=== PATIENT | male | born 1950 | race Caucasian/White ===

== ENCOUNTER 2021-12-06 09:28 | Outpatient (CLI) | payer OTHER, SELFPAY | END 2021-12-06 09:29 | disposition home or self-care (01) | LOC: ANHAUDIO 09:30 | PROVIDERS: PCP Family Medicine; Visit Provider Family Medicine | DX: H90.3 Sensorineural hearing loss, bilateral (principal) | CPT/HCPCS: 92557; 92567 ==

== ENCOUNTER 2023-11-20 15:23 | Observation (INO) | payer OTHER, SELFPAY ==
[2023-11-20] VITALS (12 sets, daily range): BP systolic 102–120; BP diastolic 53–89; PULSE 59–71; RESP 12–20; TEMP 36.2–36.4; O2SAT 95–100; BMI 37.7
--- NOTE | ~2023-11-20 | MR_ITS ---
EXAMINATION: MR brain/brain stem wo/w con DATE: 11/21/2023 12:46 INDICATION: Transient ischemic attack. TECHNIQUE: Magnetic resonance imaging (MRI) of the brain and brainstem was performed without and with 20 mL MultiHance intravenous contrast. COMPARISON: Head CT 11/20/2023 FINDINGS: There are scattered areas of nonspecific increased T2-weighted signal intensity in the cere bral white matter. There is no intracranial hemorrhage, acute infarction, or abnormal intracranial ma ss lesion. The ventricles are normal in size. There are likely changes of ocular lens replacement cassius geries. The paranasal sinuses are clear. The mastoid air cells are normal. IMPRESSION: 1. Mild nonspecific cerebral white matter disease, which likely represents chronic small vessel ische ciara disease. Reviewed, dictated and finalized at location A. IMPRESSION: 1. 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
--- NOTE | ~2023-11-20 | US_ITS ---
EXAMINATION: US venous doppler [facility] DATE: 11/21/2023 10:05 INDICATION: Lower limb edema. TECHNIQUE: Grayscale ultrasound images without and with compression and Doppler ultrasound images of the bilateral lower extremity veins were obtained. COMPARISON: None. FINDINGS: The visualized portions of right common femoral vein, profunda (deep) femoral vein, femoral vein, pop liteal vein, peroneal veins, posterior tibial veins, and greater saphenous vein outflow are patent. The visualized portions of left common femoral vein, profunda femoral vein, femoral vein, popliteal v ein, peroneal veins, posterior tibial veins, and greater saphenous vein outflow are patent. IMPRESSION: 1. No deep venous thrombosis. Reviewed, dictated and finalized at location A.
--- NOTE | ~2023-11-20 | US_ITS ---
EXAMINATION: US renal BI DATE: 11/21/2023 14:38 INDICATION: Elevated creatinine. TECHNIQUE: Multiple ultrasound grayscale images of the kidneys were obtained. COMPARISON: None. FINDINGS: The right kidney measures 10.7 x 6.2 x 6.4 cm. The left kidney measures 12.3 x 5.1 x 4.7 cm. The kidn eys demonstrate normal parenchymal echogenicity. There is no hydronephrosis. The bladder is normal. IMPRESSION: 1. Normal kidneys. No hydronephrosis. Reviewed, dictated and finalized at location A.
--- NOTE | ~2023-11-20 | CT_ITS ---
EXAMINATION: CT brain wo con DATE: 11/20/2023 15:40 INDICATION: Cerebrovascular accident. TECHNIQUE: Computed tomography (CT) of the head was performed without intravenous contrast. The mA wa s adjusted according to patient size. Iterative reconstruction technique was employed. The dose-lengt h product was 681.00 mGy-cm. COMPARISON: None FINDINGS: There are scattered areas of low attenuation in the cerebral white matter. There is no int racranial hemorrhage, acute infarction, or abnormal intracranial mass lesion. The ventricles are norm al in size. There are likely changes of ocular lens replacement surgeries. There is mild mucosal thic kening in the paranasal sinuses. The mastoid air cells are normal. IMPRESSION: 1. Mild nonspecific cerebral white matter disease, which likely represents chronic small vessel ische ciara disease. 2. I discussed this case with Dr. Middleton. Reviewed, dictated and finalized at location A. IMPRESSION: 1. Mild nonspecific cerebral white matter disease, which likely represents iron caster gab small vessel ischemic disease. 2. I discussed this case with Dr. Middleton.
--- NOTE | ~2023-11-20 | XR_ITS ---
EXAMINATION: XR chest 1V portable DATE: 11/20/2023 15:57 INDICATION: Altered mental status. TECHNIQUE: A single frontal view of the chest was obtained on 2 radiographs. COMPARISON: None. FINDINGS: There is no pneumonia, pleural effusion, or pneumothorax. The heart size is normal. There a re changes of posterior fusion procedure in thoracic spine. IMPRESSION: 1. No acute cardiopulmonary disease. Reviewed, dictated and finalized at location A.
--- NOTE | 2023-11-20 15:27 | ECG_ITS ---
Test Date: 2023-11-20 15:50:50 Measurements Intervals [place] Rate: 61 P: 76 SD: 172 QRS: -3 QRSD: 101 T: 59 QT: 425 QTc: 429 Interpretive Statements SINUS RHYTHM NONSPECIFIC T-WAVE ABNORMALITY ABNORMAL ECG No previous ECG available for comparison Electronically Signed On 11-20-2023 16:04:52 CDT by Elmer Shepard M.D.
[2023-11-20 15:43] LABS: Glucose Point of Care 123 mg/dl (65-105)
[2023-11-20 15:45] LABS: Basophils Absolute Auto 0.1 K/mm3 (0.0-0.1); Basophils Percent Auto 0.4 % (0.2-1.2); Eosinophils Absolute Auto 0.2 K/mm3 (0-0.3); Eosinophils Percent Auto 1.5 % (0-4.4); Hematocrit 39.8 % (42.0-52.0); Hemoglobin 13.3 g/dL (14.0-18.0); Immature Granulocyte Absolute 0.03 K/mm3 (0.00-0.031); Immature Granulocyte Percent A 0.3 % (0-0.5); Lymphocytes Absolute Auto 3.76 K/mm3 (0.9-3.2); Lymphocytes Percent Auto 31.6 % (18.3-44.2); Mean Corpuscular HGB Conc 33.4 g/dl (32-36); Mean Corpuscular Hemoglobin 29.6 pg (26-34); Mean Corpuscular Volume 88.4 fl (80-100); Mean Platelet Volume 10.4 fl (7.4-10.4); Monocytes Absolute Auto 1.2 K/mm3 (0.1-0.6); Monocytes Percent Auto 10.3 % (2.6-8.5); Neutrophils Absolute Auto 6.7 K/mm3 (1.3-6.7); Neutrophils Percent Auto 55.9 % (45.5-73.1); Platelet Count Result 213 k/mm3 (150-375); Red Cell Distribution Width 13.2 % (11.5-14.5); White Blood Count 11.9 K/mm3 (4.5-10.0)
[2023-11-20 15:57] LABS: INR 1.1; Partial Thromboplastin Time 29.5 Seconds (22.3-36.8)
--- NOTE | 2023-11-20 15:57 | ED.NEUROSD ---
HPI - Neuro Symptoms/Deficit General Chief Complaint: Suspected CVA Stated Complaint: weakness Time Seen by Provider: 11/20/23 15:46 History of Present Illness HPI Narrative: 73-year-old male presents to the emergency department for evaluation for altered mental status that started approximately noon. Patient states that he has bowel surrounding the car when the patient became dizzy and weak. Patient had no falls or injuries. Patient's pulse was concerned so he brought to emergency department for evaluation. Patient did have significant difficulty getting out of the car. Patient denies any new numbness or weakness. Patient does have weakness of the left leg that he states is not new. Patient has a prior history of a DVT in that leg and states that he normally has weakness and decreased sensation in that leg and that is unchanged today. Patient does have history of urinary retention, chronic kidney disease. Patient has no prior history of urinary tract infection. Related Data Home Medications Medication Instructions Recorded Confirmed aspirin 81 mg tablet,delayed 81 mg PO DAILY 07/30/21 11/20/23 release (Adult Aspirin Regimen) multivit with wj-SL-vhegoaxc-omega 1 cap PO .QD 07/30/21 11/20/23 3,6,9 no.3 400 mcg-300 mcg capsule omeprazole 20 mg capsule,delayed 40 mg PO DAILY 11/02/21 11/20/23 release metolazone 5 mg tablet 5 mg PO PRN PRN swelling 10/16/23 11/20/23 Allergies Allergy/AdvReac Type Severity Reaction Status Date / Time gabapentin AdvReac Mild Headache Verified 11/20/23 16:01 Review of Systems Review of Systems: All systems reviewed & are unremarkable except as noted in HPI and below PMFSH Past Medical History Medical History (HFpEF) heart failure with preserved ejection fraction Ataxia Burning chest pain Cervical spine degeneration CKD (chronic kidney disease) stage 3, GFR 30-59 ml/min Constipation Diastolic dysfunction Hyperlipidemia Hypertension Insomnia Ischemic optic neuropathy Low back pain 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 Other Breast cancer Cerebrovascular accident Social History Social History Social History: Surrogate medical decision maker: Lasha Vu, spouse. Code status: Full code. 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 HEAD: normocephalic, atraumatic. EYES: PERRLA/EOMI, conjunctivae clear. NOSE: Normal no drainage EARS:TMS clear with good light reflex. THROAT: Pharynx
[2023-11-20 16:11] LABS: Troponin I 0.022 ng/mL (0.000-0.034)
[2023-11-20 16:14] LABS: Estimated CRCL calculation 30 ml/min; Estimated Glomerular Filt Rate 21
[2023-11-20 16:43] LABS: Appearance Urine Clear (Clear); Bacteria Urine None Seen /hpf; Bilirubin Urine Negative (Negative); Blood Urine Negative (Negative); Color Urine Yellow (Yellow); Glucose Urine UA Negative (Negative); Ketones Urine Negative (Negative); Leukocyte Esterase Ur Trace LEU/UL (Negative); Nitrate Urine Negative (Negative); Protein Urine Negative (Negative); RBC Urine 0-2 /hpf (0-2); Specific Grav Ur 1.016 (1.001-1.035); Squamous Epithelial Cell Urine Occasional /hpf (Few); WBC Urine 0-5 /hpf (0-3); pH Urine 6.5 (5.0-9.0)
[2023-11-20 16:44] LABS: Alanine Aminotransferase 23 U/L (6-50); Albumin Level 4.7 g/dL (3.5-5.1); Alkaline Phosphatase 62 U/L (38-126); Anion Gap 11 mmol/L (4-12); Aspartate Amino Transferase 35 U/L (17-59); Bilirubin,Total 1.1 mg/dL (0.2-1.3); Blood Urea Nitrogen 53 mg/dL (9-20); Calcium 9.6 mg/dL (8.4-10.2); Carbon Dioxide 34 mmol/L (22-30); Chloride 90 mmol/L (98-107); Estimated CRCL calculation 34 ml/min; Estimated Glomerular Filt Rate 24; Glucose 116 mg/dL (65-110); Potassium 2.9 mmol/L (3.4-5.0); Sodium 135 mmol/L (137-145)
[2023-11-20 16:51] LABS: Add Urine Microscopic? YES
[2023-11-20] MEDS: SODIUM CHLORIDE 0.9% IV 1,000 ML 999 ML IV CONT (16:59)
[2023-11-20 17:14] LABS: Influenza A QL RT-PCR Negative (Negative); Influenza B QL RT-PCR Negative (Negative); RSV RNA, RT-PCR Negative (Negative); SARS-CoV-2 RNA PCR Negative (Negative)
--- NOTE | 2023-11-20 18:30 | PC.NURSE ---
This patient, Jordan Carroll, was admitted to Medical Room 342-01. Patient/family oriented to hospital policies and general routines including ID bracelet, bed and alarms, visiting hours, pain management, procedures, bathroom and other care routines, personal items, smoking policy, room service/diet, and visiting hours. Information on how to activate the Rapid Response Team has been discussed. Patient/Family are encouraged to report perceived risks to care and to ask questions if they do not understand what they are told or what they should do.
--- NOTE | 2023-11-20 18:32 | PM.IMHP ---
H&P: HPI History of Present Illness Date/Time: 11/20/23 18:30 Chief Complaint: Weakness. Narrative: This is a very pleasant 73-year-old male with hypertension, hyperlipidemia, prediabetes, chronic kidney disease stage 3, diastolic dysfunction, and history of deep venous thrombosis following extensive spinal surgery who presented to the emergency department via private vehicle for evaluation of weakness. The patient provides the following history. He felt fine when he got up this morning and just before noon he took his afternoon medications and went with his spouse to his doctor's appointment. On the ride there he began to feel strange with lightheadedness, dizziness, nausea, and generalized weakness. His spouse when into his appointment in the patient's state and the car where ?I either fell asleep or passed out.? They than headed towards home so he could rest however he could not get out of the car due to weakness as he was afraid that he was going to fall. He reports that the left side seemed to be weaker when compared to the right, leg worse than arm. He had a similar episode approximately 1 week ago which he attributed to dehydration as he had been outside working in the yard. At that time his symptoms improved after some rest and hydration. With further questioning he reports that he has been eating and drinking as per usual and he reports that he drinks quite a bit of water each day. He does mention that he was started on metolazone a little less than a month ago for lower extremity edema and he has been taking that 3 times a day. He has also noticed that his urine output seems to be less than usual since starting that drug. He denies vertigo, vision changes, facial droop, difficulty speaking and swallowing, palpitations, sensations of irregular heart rhythm. He also denies nausea, vomiting, and diarrhea. In the ED: Blood pressure was 102/53 on arrival. Labs were significant for a WBC count of 11.9, hemoglobin 13.3, sodium 135, potassium 2.9, chloride 90, carbon dioxide 34, BUN 53, creatinine 2.60, glucose 116. He tested negative for influenza, RSV, and COVID. Head CT showed mild nonspecific cerebral white matter disease which likely represents chronic small-vessel ischemic disease. Chest x-ray showed no acute cardiopulmonary disease. EKG showed sinus rhythm with nonspecific T-wave abnormalities. He was given a L normal saline bolus and is being admitted in this setting for further treatment and evaluation. Review of Systems Review of Systems: 12 systems were reviewed and are negative except for as per HPI. 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 Other Breast cancer Cerebrovascular accident Social History Social History (Updated 11/20/23 @ 22:26 by Ashwini Sanchez PA-C) Social History: Surrogate medical decision maker: Lasha Horace, spouse. Code status: Full code. Smoking status: Former smoker (Quit 1999) Tobacco type: cigarettes Second hand tobac
[2023-11-20] MEDS: POTASSIUM CHLORIDE 20 MEQ ER TABLET 40 MEQ PO (20:42)
[2023-11-20] MEDS: SODIUM CHLORIDE 0.9% IV 1,000 ML 125 ML IV CONT (20:42)
[2023-11-20] MEDS: PREGABALIN (*CRX) 75 MG CAPSULE PO (23:13)
[2023-11-20] MEDS: traZODone HCL 50 MG TABLET 100 MG PO (23:13)
[2023-11-21] VITALS (12 sets, daily range): BP systolic 100–135; BP diastolic 50–76; PULSE 47–73; RESP 16–20; TEMP 36.1–36.3; O2SAT 96–100
[2023-11-21] MEDS: SODIUM CHLORIDE 0.9% IV 1,000 ML 125 ML IV CONT (04:57)
[2023-11-21 05:28] LABS: Hematocrit 32.8 % (42.0-52.0); Mean Corpuscular HGB Conc 33.5 g/dl (32-36); Mean Corpuscular Hemoglobin 29.9 pg (26-34); Mean Corpuscular Volume 89.1 fl (80-100); Mean Platelet Volume 10.5 fl (7.4-10.4); Platelet Count Result 169 k/mm3 (150-375); Red Blood Count 3.68 M/mm3 (4.6-6.20); Red Cell Distribution Width 13.3 % (11.5-14.5); White Blood Count 9.4 K/mm3 (4.5-10.0)
[2023-11-21 05:39] LABS: Anion Gap 7 mmol/L (4-12); Blood Urea Nitrogen 59 mg/dL (9-20); Calcium 8.9 mg/dL (8.4-10.2); Carbon Dioxide 34 mmol/L (22-30); Chloride 95 mmol/L (98-107); Estimated CRCL calculation 24 ml/min; Estimated Glomerular Filt Rate 17; Glucose 96 mg/dL (65-110); Magnesium 2.2 mg/dL (1.6-2.3); Potassium 3.1 mmol/L (3.4-5.0); Sodium 136 mmol/L (137-145)
[2023-11-21] MEDS: cilostazoL 50 MG TABLET PO ×4 (08:15→21:05)
[2023-11-21] MEDS: PREGABALIN (*CRX) 75 MG CAPSULE PO ×2 (08:15→21:00)
[2023-11-21] MEDS: POTASSIUM CHLORIDE 20 MEQ ER TABLET PO ×2 (08:16→17:52)
[2023-11-21] MEDS: ASPIRIN 81 MG ENTERIC TABLET PO (08:16)
[2023-11-21] MEDS: PANTOPRAZOLE 40 MG TABLET PO ×2 (08:16→21:01)
[2023-11-21] MEDS: ENOXAPARIN 40 MG/0.4 ML SYRINGE SUB-Q (08:16)
[2023-11-21] MEDS: ATORVASTATIN 10 MG TABLET PO (08:16)
--- NOTE | 2023-11-21 10:00 | PM.IMPN ---
Progress Note: A&P Assessment and Plan (1) Acute on chronic kidney failure: Code(s): N17.9 - Acute kidney failure, unspecified; N18.9 - Chronic kidney disease, unspecified Status: Acute Assessment and Plan: - holding lasix 40 mg bid, hctz 112.5mg bid and metolazole 5 mg 3 times a week - iv hydration with close monitoring - cr is worsening today- will consult nephrology (2) Electrolyte abnormality: Code(s): E87.8 - Other disorders of electrolyte and fluid balance, not elsewhere classified Status: Acute Assessment and Plan: trend labs- replace if needed (3) Weakness: Code(s): R53.1 - Weakness Status: Acute Assessment and Plan: -Brain MRI has been ordered to rule out CVA which seems less likely. More over his weakness is likely related to acute on chronic renal failure and multiple electrolyte abnormalities which are likely related to his diuretics. - monitor for now- doensot appear to be neurological in nature (4) Prediabetes: Code(s): R73.03 - Prediabetes Status: Acute Assessment and Plan: -monitor - will do diabetic diet if sugars are elevated (5) Hypertension: Qualifiers: Hypertension type: primary hypertension Qualified Code(s): I10 - Essential (primary) hypertension Code(s): I10 - Essential (primary) hypertension Status: Acute Assessment and Plan: soft bp in er-102/53 - holddng lisinopril for now and monitoring (6) (HFpEF) heart failure with preserved ejection fraction: Qualifiers: Heart failure chronicity: chronic Qualified Code(s): I50.32 - Chronic diastolic (congestive) heart failure Code(s): I50.30 - Unspecified diastolic (congestive) heart failure Status: Acute Assessment and Plan: - lisinopril/hctz, lasix - echo- 06/16/22- (other facility- [facility])- ef 60% - monitor for now- fluid status- hold diuretics for now Time Spent With Patient Time with patient: 25 - 35 minutes Subjective Date/time seen: 11/21/23 10:00 Interval history: note retrieved from h/p: ..very pleasant 73-year-old male with following extensive spinal surgery who presented to the emergency department via private vehicle for evaluation of weakness. The patient provides the following history. He felt fine when he got up this morning and just before noon he took his afternoon medications and went with his spouse to his doctor's appointment. On the ride there he began to feel strange with lightheadedness, dizziness, nausea, and generalized weakness. His spouse when into his appointment in the patient's state and the car where ?I either fell asleep or passed out.? They than headed towards home so he could rest however he could not get out of the car due to weakness as he was afraid that he was going to fall. He reports that the left side seemed to be weaker when compared to the right, leg worse than arm. He had a similar episode approximately 1 week ago which he attributed to dehydration as he had been outside working in the yard. At that time his symptoms improved after some rest and hydration. With further questioning he reports that he has been eating and drinking as per usual and he reports that he drinks quite a bit of water each day. He does mention that he was started on metolazone a little less than a month ago for lower extremity edema and he has been taking that 3 times a day. He has also noticed that his urine output seems to be less than usual since starting that drug. He denies vertigo, vision changes, facial droop, difficulty speaking and swallowing, palpitations, sensations of irregular heart rhythm. He also denies nausea, vomiting, and diarrhea. In the ED: Blood pressure was 102/53 on arrival. Labs were significant for a WBC count of 11.9, hemoglobin 13.3, sodium 135, potassium 2.9, chloride 90, carbon dioxide 34, BUN 53, creatinine 2.60, glucose 116. He tested negative for influenza, RSV,
[2023-11-21 10:05] LABS: Estimated CRCL calculation 30 ml/min; Estimated Glomerular Filt Rate 21
[2023-11-21] MEDS: LORazepam (*CRX) 0.5 MG TABLET PO (11:42)
[2023-11-21] MEDS: polyethylene glycoL 3350 17 GM POWD.PACK PO (11:45)
--- NOTE | 2023-11-21 12:49 | PM.CNNEP ---
Assessment and Plan Assessment and plan (1) CKD (chronic kidney disease) stage 3, GFR 30-59 ml/min: Qualifiers: Chronic kidney disease stage 3 subtype: stage 3a (GFR 45-59) Qualified Code(s): N18.31 - Chronic kidney disease, stage 3a Code(s): N18.30 - Chronic kidney disease, stage 3 unspecified Status: Acute Assessment and Plan: michael has chronic kidney disease stage 3. His baseline creatinine seems to run between 1.5 and 1.8. in September of this year was 1.7 and earlier in October this year it was 1.8. the patient does have hypertension, vascular disease, and obesity. Please could each contribute to chronic kidney disease. There are other causes such as inflammatory disease, infiltrative diseases such as paraproteins, vascular disease, obstruction. Will check tests for each of these. (2) Acute kidney injury: Code(s): N17.9 - Acute kidney failure, unspecified Status: Acute Assessment and Plan: The patient creatinine is higher now than usual. At 1st it was thought that he might be dehydrated so he was given some IV fluids. He received a total of about 2L of fluid since admission. Unfortunately his creatinine worsened. Dehydration certainly could be playing a role. Because it is hot outside he might not be drinking enough fluid. he was also on diuretics when he was admitted, both furosemide and hydrochlorothiazide as well as metolazone. his blood pressure is not much lower than usual. So on think this is playing a role rhabdomyolysis is always a possibility as is obstruction. Will check a CK as well as a renal ultrasound and also get urine electrolytes and a fractional excretion of urea (3) Hypertension: Qualifiers: Hypertension type: primary hypertension Qualified Code(s): I10 - Essential (primary) hypertension Code(s): I10 - Essential (primary) hypertension Status: Acute Assessment and Plan: blood pressure is only 107. Will hold blood pressure pills (4) Hyperlipidemia: Qualifiers: Hyperlipidemia type: mixed hyperlipidemia Qualified Code(s): E78.2 - Mixed hyperlipidemia Code(s): E78.5 - Hyperlipidemia, unspecified Status: Acute Assessment and Plan: he is on atorvastatin (5) Constipation: Code(s): K59.00 - Constipation, unspecified Status: Acute Assessment and Plan: consider a cathartic (6) (HFpEF) heart failure with preserved ejection fraction: Qualifiers: Heart failure chronicity: chronic Qualified Code(s): I50.32 - Chronic diastolic (congestive) heart failure Code(s): I50.30 - Unspecified diastolic (congestive) heart failure Status: Acute Assessment and Plan: the patient has diastolic dysfunction according to an echo in May of 2022 (7) Prediabetes: Code(s): R73.03 - Prediabetes Status: Acute History of Present Illness Reason for Consult Consult date: 11/21/23 Chief Complaint Chief complaint: Weakness/AMS History of Present Illness Narrative: Jordan is a very pleasant 73-year-old gentleman with multiple medical problems including prediabetes, hypertension, hyperlipidemia, chronic kidney disease with a baseline creatinine of around 2, diastolic dysfunction, DVT in the past, history of ataxia, swelling, peripheral arterial disease, and constipation. Patient says he was well until about a week ago when he stopped having bowel movements. He does have constipation on and off. But this was a particularly bad episode where he did not have bowel movement for about 6 days on the day of admission the patient became lightheaded and nauseated with generalized weakness. He thought it would just passed and so wait a little while. He was going with his for her doctor visit and made it through that appointment but then on the way home became worse. He could not get out of the car so they called 911 and brought him over to t
[2023-11-21 17:42] LABS: Creatinine Urine 31.5 mg/dL; Total Protein Urine Random 19 mg/dL; Urea Random Urine 312 MG/DL
[2023-11-21 17:50] LABS: Sodium Urine Random 31 meq/L
[2023-11-21 20:39] LABS: Creatine Kinase 120 U/L (55-170)
[2023-11-21 20:57] LABS: Erythrocyte Sedimentation Rate 22 mm/hr (0-20)
[2023-11-21] MEDS: SODIUM CHLORIDE 0.9% IV 1,000 ML 50 ML IV CONT (21:00)
[2023-11-21] MEDS: traZODone HCL 50 MG TABLET 100 MG PO (21:01)
[2023-11-21 21:30] LABS: Complement C3 121 mg/dL (88-165)
[2023-11-21 21:34] LABS: Parathyroid Intact 125.5 pg/mL (7.5-53.5)
[2023-11-22] VITALS (10 sets, daily range): BP systolic 109–138; BP diastolic 44–66; PULSE 50–65; RESP 16–20; TEMP 36.4–36.6; O2SAT 98–100
--- NOTE | 2023-11-22 | ECHO_ITS ---
Patient Info Name: Jordan Carroll Age: 73 years : 1950 Gender: Male Ht: 74 in Wt: 296 lbs BSA: 2.70 m2 HR: 51 bpm BP: 109 / 44 mmHg Technical Quality: Fair Exam Date: 11/22/2023 9:35 AM Exam Location: Echo Lab Patient Status: Inpatient Admit Date: 11/20/2023 Staff Ordering Physician: Jennifer Dawn APRN Mountain Bike Guide: Brenton Pena RDCS Attending Provider: Jennifer Dawn APRN Referring Physician: López SHIELDS; Exam Type: CA echo doppler color flow Study Info Indications - hypotension - bradycardia Complete two-dimensional, color flow and Doppler transthoracic echocardiogram is performed. Summary 1. Complete two-dimensional, color flow and Doppler transthoracic echocardiogram is performed. 2. Left ventricular chamber dimension is normal. 3. Left ventricular systolic function is normal, estimated at 60-65%. 4. There is mild concentric increased left ventricular wall thickness. 5. The left ventricular diastolic function is normal. 6. E/e' 7 is not elevated. 7. Left atrial chamber dimension is mildly enlarged. 8. No pulmonary hypertension, estimated pulmonary arterial systolic pressure is 20 mmHg. 9. The aortic root size at the sinus of Valsalva is borderline dilated at 4.0 cm. 10. Dilated inferior vena cava with >50% collapse upon inspiration consistent with normal right atrial pressure, 10 mmHg. Left Ventricle E/e' 7 is not elevated. Left ventricular chamber dimension is normal. Left ventricular systolic function is normal, estimated at 60-65%. There is mild concentric increased left ventricular wall thickness. The left ventricular diastolic function is normal. Right Ventricle Right ventricular systolic function is normal and with normal TAPSE 2.4 cm. Right ventricular chamber dimension is normal. Left Atria Left atrial chamber dimension is mildly enlarged. Right Atria Right atrial chamber dimension is normal. Aortic Valve The aortic valve is trileaflet. There is no aortic valve stenosis. There is no aortic valve regurgitation. Pulmonic Valve There is no pulmonic regurgitation. Mitral Valve There is no mitral valve stenosis. There is no mitral valve regurgitation. Tricuspid Valve There is no tricuspid valve regurgitation. No pulmonary hypertension, estimated pulmonary arterial systolic pressure is 20 mmHg. Pericardium/Pleural There is no pericardial effusion. Inferior Vena Cava Dilated inferior vena cava with >50% collapse upon inspiration consistent with normal right atrial pressure, 10 mmHg. Aorta The aortic root size at the sinus of Valsalva is borderline dilated at 4.0 cm. Left Ventricular Outflow Tract Name Value Normal LVOT 2D LVOT Diameter 2.1 cm LVOT Doppler LVOT Peak Gradient 5 mmHg LVOT Mean Gradient 3 mmHg LVOT VTI 25 cm LVOT VTI/AV VTI Ratio 0.8 LVOT Stroke Volume 90 ml LVOT CO 4.7 l/min LVOT CI 1.8 l/min/m2 Pulmonic Valve Name
[2023-11-22 05:38] LABS: Anion Gap 4 mmol/L (4-12); Blood Urea Nitrogen 43 mg/dL (9-20); Calcium 9.5 mg/dL (8.4-10.2); Carbon Dioxide 35 mmol/L (22-30); Chloride 98 mmol/L (98-107); Estimated CRCL calculation 46 ml/min; Estimated Glomerular Filt Rate 35; Glucose 97 mg/dL (65-110); Phosphorus 2.7 mg/dL (2.5-4.5); Potassium 3.7 mmol/L (3.4-5.0); Sodium 137 mmol/L (137-145)
[2023-11-22 08:29] LABS: Magnesium 2.4 mg/dL (1.6-2.3)
[2023-11-22] MEDS: ASPIRIN 81 MG ENTERIC TABLET PO (08:46)
[2023-11-22] MEDS: ATORVASTATIN 10 MG TABLET PO (08:46)
[2023-11-22] MEDS: POTASSIUM CHLORIDE 20 MEQ ER TABLET PO (08:47)
[2023-11-22] MEDS: PREGABALIN (*CRX) 75 MG CAPSULE PO (08:47)
[2023-11-22] MEDS: PANTOPRAZOLE 40 MG TABLET PO (08:47)
[2023-11-22] MEDS: ENOXAPARIN 40 MG/0.4 ML SYRINGE SUB-Q (08:47)
[2023-11-22] MEDS: cilostazoL 50 MG TABLET PO ×2 (08:47→13:51)
[2023-11-22] MEDS: polyethylene glycoL 3350 17 GM POWD.PACK PO (08:47)
--- NOTE | 2023-11-22 12:21 | PM.PNNEP ---
Progress Note: A&P Assessment and Plan (1) Acute kidney injury: Code(s): N17.9 - Acute kidney failure, unspecified Status: Acute Assessment and Plan: improvement noted today as noted on admission worsened yesterday despite IVFs suspect still due to volume depletion worsened by diuretics prior to admission and relative hypotension evaluation to date: prerenal urine electrolytes by FeUrea renal ultrasound okay CPK normal mild proteinuria follow trend of repeat labs and UOP (2) CKD (chronic kidney disease) stage 3, GFR 30-59 ml/min: Qualifiers: Chronic kidney disease stage 3 subtype: stage 3a (GFR 45-59) Qualified Code(s): N18.31 - Chronic kidney disease, stage 3a Code(s): N18.30 - Chronic kidney disease, stage 3 unspecified Status: Chronic Assessment and Plan: creatinine seems to run ~ 1.3 - 1.8mg/dl this causes him to fluctuate between CKD stage 3A and 3B presumably due to hypertension, vascular disease, and obesity follow-up on pending testing (3) Hypertension: Qualifiers: Hypertension type: primary hypertension Qualified Code(s): I10 - Essential (primary) hypertension Code(s): I10 - Essential (primary) hypertension Status: Acute Assessment and Plan: relative hypotension on admission BP doing better with holding parameters of BP medications follow trend of hemodynamics (4) Weakness: Code(s): R53.1 - Weakness Status: Acute Assessment and Plan: clinically better suspect related to volume depletion and relative hypotension along with MIGEL on CKD Will continue to follow. Subjective Date/time seen: 11/22/23 12:21 Interval history: Follow-up for acute kidney injury/acute renal failure on chronic kidney disease. Chart reviewed -- assuming care from Dr. Ugalde; renal function continues to improve with current interventions/therapy; no apparent distress noted at the time of my visit; feels reasonably well and in no apparent distress; no issues/events overnight or earlier this morning. Exam Narrative: General: elderly but WD/WN male in NAD Heart: normal S1 and S2; no rub Lungs: clear to auscultation Abdomen: soft, nontender, nondistended, positive bowel sounds Extremities: no cyanosis or clubbing; trace edema Skin: warm and dry Objective Data Vital Signs Vital Signs: Vital Signs Temp Pulse Resp BP Pulse Ox O2 Del Method 11/22/23 12:00 97.9 F 60 16 129/63 100 11/22/23 10:06 65 119/66 11/22/23 10:06 64 138/64 11/22/23 10:05 65 129/65 11/22/23 06:00 97.6 F 51 L 20 109/44 L 99 11/22/23 07:48 98 Room Air 11/22/23 04:00 53 L 11/22/23 00:00 50 L 11/21/23 20:00 Room Air 11/21/23 20:00 64 11/21/23 22:00 97.2 F L 56 L 20 100/76 100 11/21/23 22:00 97.2 F L 56 L 20 100/76 100 11/21/23 22:10 97.0 F L 64 20 135/75 99 11/21/23 22:05 97.1 F L 54 L 20 130/64 98 Intake/Output Intake/Output: Intake & Output 11/19/23 11/20/23 11/21/23 11/22/23 23:59 23:59 23:59 23:59 Intake Total 1000 3080 1320 Output Total 220 1000 Balance 780 2080 1320 Meds/Results Medications: Medications: Active Medications Generic Name Dose Route Start Last Admin Trade Name Freq PRN Reason Stop Dose Admin Acetaminophen 650 mg 11/20/23 22:27 Acetaminophen 325 Mg Tablet PO Q6H PRN Mild Pain (1-3) or Fever Aspirin 81 mg 11/21/23 09:00 11/21/23 08:16 Aspirin 81 Mg Enteric Tablet PO 81 mg DAILY RUPERTO Administration Atorvastatin Calcium 10 mg 11/21/23 09:00 11/21/23 08:16 Atorvastatin 10 Mg Tablet PO 10 mg DAILY RUPERTO Administration Cilostazol 50 mg 11/21/23 08:00 11/21/23 08:15 Cilostazol 50 Mg Tablet PO 50 mg 0800,1200,1700,2100 RUPERTO Administration Enoxaparin Sodium 40 mg 11/21/23 09:00 11/21/23 08:16 Enoxaparin 40 Mg/0.4 Ml [facility]
--- NOTE | 2023-11-22 12:36 | PM.DS ---
DS: Admitting Diagnosis Discharge Date 11/22/2023 Admitting Diagnosis Acute on chronic renal failure/dehydration DS: Discharge Diagnosis Discharge Diagnosis (1) Acute on chronic kidney failure: Code(s): N17.9 - Acute kidney failure, unspecified; N18.9 - Chronic kidney disease, unspecified Status: Acute Assessment and Plan: - holding lasix 40 mg bid, hctz 112.5mg bid and metolazole 5 mg 3 times a week - iv hydration with close monitoring - cr is worsening today- will consult nephrology (2) Electrolyte abnormality: Code(s): E87.8 - Other disorders of electrolyte and fluid balance, not elsewhere classified Status: Acute Assessment and Plan: trend labs- replace if needed (3) Weakness: Code(s): R53.1 - Weakness Status: Acute Assessment and Plan: -Brain MRI has been ordered to rule out CVA which seems less likely. More over his weakness is likely related to acute on chronic renal failure and multiple electrolyte abnormalities which are likely related to his diuretics. - monitor for now- doensot appear to be neurological in nature (4) Prediabetes: Code(s): R73.03 - Prediabetes Status: Acute Assessment and Plan: -monitor - will do diabetic diet if sugars are elevated (5) Hypertension: Qualifiers: Hypertension type: primary hypertension Qualified Code(s): I10 - Essential (primary) hypertension Code(s): I10 - Essential (primary) hypertension Status: Acute Assessment and Plan: soft bp in er-102/53 - holddng lisinopril for now and monitoring (6) (HFpEF) heart failure with preserved ejection fraction: Qualifiers: Heart failure chronicity: chronic Qualified Code(s): I50.32 - Chronic diastolic (congestive) heart failure Code(s): I50.30 - Unspecified diastolic (congestive) heart failure Status: Acute Assessment and Plan: - lisinopril/hctz, lasix - echo- 06/16/22- (other facility- [facility])- ef 60% - monitor for now- fluid status- hold diuretics for now DS: Summary Hospital Course Hospital Course: Interval history: note retrieved from h/p: ..very pleasant 73-year-old male with following extensive spinal surgery who presented to the emergency department via private vehicle for evaluation of weakness. The patient provides the following history. He felt fine when he got up this morning and just before noon he took his afternoon medications and went with his spouse to his doctor's appointment. On the ride there he began to feel strange with lightheadedness, dizziness, nausea, and generalized weakness. His spouse when into his appointment in the patient's state and the car where ?I either fell asleep or passed out.? They than headed towards home so he could rest however he could not get out of the car due to weakness as he was afraid that he was going to fall. He reports that the left side seemed to be weaker when compared to the right, leg worse than arm. He had a similar episode approximately 1 week ago which he attributed to dehydration as he had been outside working in the yard. At that time his symptoms improved after some rest and hydration. With further questioning he reports that he has been eating and drinking as per usual and he reports that he drinks quite a bit of water each day. He does mention that he was started on metolazone a little less than a month ago for lower extremity edema and he has been taking that 3 times a day. He has also noticed that his urine output seems to be less than usual since starting that drug. He denies vertigo, vision changes, facial droop, difficulty speaking and swallowing, palpitations, sensations of irregular heart rhythm. He also denies nausea, vomiting, and diarrhea. In the ED: Blood pressure was 102/53 on arrival. Labs were significant for a WBC count of 11.9, hemoglobin 13.3, sodium 135, potassium 2.9, chloride 90, carbon dioxide 34, BUN 53,
--- NOTE | 2023-11-22 17:08 | PC.NURSE ---
Pt requesting information on diabetic/nutritional education. Educational paperwork printed for patient.
[2023-11-23 11:39] LABS: Kappa\\Lambda Light Chains 1.62 (0.26-1.65); Lambda Light Chain 22.4 mg/L (5.7-26.3)
[2023-11-24 13:02] LABS: Complement Total CH50 58 U/mL (31-60)
[2023-11-24 17:03] LABS: Creat 24 Hr 2.64 g/24 h (0.50-2.15); Pro/Creat Ratio 100 mg/g creat (<100); Protein,total, 24 Hr Ur 264 mg/24 h (<150)
[2023-11-24 21:04] LABS: Immunofixation, Serum Normal pattern.
[2023-11-28 12:52] LABS: ANA Pattern Nuclear, Nucleolar; Anti Nuclear Antibody Pattern Nuclear, Speckled
[2023-11-28 13:08] LABS: Albumin 0 %
== END 2023-11-22 17:09 | disposition home or self-care (01) ==
LOC: ANHED 16:30 → ANH3MED 18:31
PROVIDERS: Internal Medicine Nephrology; Physician Assistant; Admitting Provider Hospitalist; Emergency Provider Emergency Medicine; PCP Family Medicine; Visit Provider Nurse Practitioner Family
DX: N17.9 Acute kidney failure, unspecified (principal); E87.8 Other disorders of electrolyte and fluid balance, not elsewhere classified; I13.0 Hypertensive heart and chronic kidney disease with heart failure and stage 1 through stage 4 chronic kidney disease, or unspecified chronic kidney disease; I50.32 Chronic diastolic (congestive) heart failure; N18.30 Chronic kidney disease, stage 3 unspecified; E78.5 Hyperlipidemia, unspecified; I73.9 Peripheral vascular disease, unspecified; H47.019 Ischemic optic neuropathy, unspecified eye; R73.03 Prediabetes; Z87.891 Personal history of nicotine dependence; Z86.718 Personal history of other venous thrombosis and embolism; Z79.82 Long term (current) use of aspirin; Z20.822 Contact with and (suspected) exposure to COVID-19
CPT/HCPCS: 36415; 70450; 70553; 71045; 76775; 80048; 80053; 80069; 81001; 82550; 82565; 82570; 82948; 83735; 83883; 83970; 84156; 84300; 84443; 84484; 84540; 85025; 85027; 85610; 85652; 85730; 86038; 86039; 86160; 86162; 86334; 86335; 87637; 93005; 93306; 93970; 96360; 96361; 96372; 99285; A9270; A9577; G0378; J1650; J7030

== ENCOUNTER 2024-02-06 00:19 | Day surgery (SDC) | payer OTHER, SELFPAY ==
[2024-01-17 09:54] VITALS: BMI 37.6
--- NOTE | 2024-01-24 13:53 | PC.NURSE ---
Spoke with PATIENT regarding medication CILOSTAZOL. Pt. verbalizes understanding that the last dose of CILOSTAZOL is to be taken on 02/01/2024 and the Endoscopist will instruct them when to restart after the procedure.
--- NOTE | 2024-02-06 07:08 | WPDANESEPPF ---
Anes - Initial Pre Proc Eval Procedure: Operation Date: 02/06/24 11:00 Proposed Procedures p Screening Colonoscopy - Pool Kang MD Date/Time: 02/06/24 07:08 Surgeon: Pool Kang MD Pre Op Diagnosis: Neoplasm screening Patient Data Age: 73 Gender: M Height: 1.88 m Weight: 133 kg Allergies Allergy/AdvReac Type Severity Reaction Status Date / Time gabapentin AdvReac Mild Headache Verified 02/06/24 09:39 Home Medications Medication Instructions Recorded Confirmed Type aspirin 81 mg tablet,delayed 81 mg PO DAILY 07/30/21 02/06/24 History release (Adult Aspirin Regimen) multivit with [id number] 1 cap PO .QD 07/30/21 02/06/24 History 3,6,9 no.3 400 mcg-300 mcg capsule omeprazole 20 mg capsule,delayed 20 mg PO DAILY PRN reflux 11/02/21 02/06/24 History release trazodone 100 mg tablet 100 mg PO QHS #90 tabs 08/06/23 02/06/24 Rx atorvastatin 10 mg tablet 10 mg PO DAILY #90 tabs 09/08/23 02/06/24 Rx potassium chloride 20 mEq 20 meq PO BID #180 tabs 09/08/23 02/06/24 Rx tablet,extended release(part/cryst) (Klor-Con M) cilostazol 50 mg tablet 50 mg PO QID #360 tabs 10/31/23 02/06/24 Rx lisinopril 20 1 tablet PO DAILY #90 tabs 10/31/23 02/06/24 Rx mg-hydrochlorothiazide 12.5 mg tablet pregabalin 75 mg capsule 75 mg PO BID #180 caps 11/06/23 02/06/24 Rx cholecalciferol (vitamin D3) 50 50 mcg PO DAILY 01/04/24 02/06/24 History mcg (2,000 unit) capsule biotin 10,000 mcg capsule 10,000 mcg PO DAILY 01/17/24 02/06/24 History furosemide 40 mg tablet 40 mg PO BID 01/17/24 02/06/24 History Patient hx anesthesia problems: none Family hx anesthesia problems: none Results Review: All pre-operative results and documents have been reviewed as part of the pre-operative evaluation. 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 Other Breast cancer Cerebrovascular accident Social History Social History Social History: Surrogate medical decision maker: Lasha Vu, spouse. Code status: Full code. 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
--- NOTE | 2024-02-06 09:51 | PM.HPGS ---
History of Present Illness History of Present Illness Consent: Risks, benefits, and alternatives have been discussed and questions answered. Patient agrees to proceed with procedure. Chief complaint: Neoplasm screening Narrative: Jordan Carroll is a 73 year old male here for screening colonoscopy, last one 12 years ago Review of Systems Review of Systems: All systems reviewed & are unremarkable except as noted in HPI and below PMFSH Past Medical History Medical History (Updated 02/06/24 @ 07:09 by Gregory Das DO) (HFpEF) heart failure with preserved ejection fraction Ataxia Burning chest pain Cervical spine degeneration CKD (chronic kidney disease) stage 3, GFR 30-59 ml/min Constipation Diastolic dysfunction DVT (deep venous thrombosis) Hyperlipidemia Hypertension Insomnia Ischemic optic neuropathy Low back pain 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 Other Breast cancer Cerebrovascular accident Social History Social History Social History: Surrogate medical decision maker: Lasha Vu, spouse. Code status: Full code. 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 Spiritual care concerns: No Agree to blood products: Yes Meds Home Medications and Allergies Home Medications Medication Instructions Recorded Confirmed Type aspirin 81 mg tablet,delayed 81 mg PO DAILY 07/30/21 02/06/24 History release (Adult Aspirin Regimen) multivit with [id number]-omega 1 cap PO .QD 07/30/21 02/06/24 History 3,6,9 no.3 400 mcg-300 mcg capsule omeprazole 20 mg capsule,delayed 20 mg PO DAILY PRN reflux 11/02/21 02/06/24 History release trazodone 100 mg tablet 100 mg PO QHS #90 tabs 08/06/23 02/06/24 Rx atorvastatin 10 mg tablet 10 mg PO DAILY #90 tabs 09/08/23 02/06/24 Rx potassium chloride 20 mEq 20 meq PO BID #180 tabs 09/08/23 02/06/24 Rx tablet,extended release(part/cryst) (Klor-Con M) cilostazol 50 mg tablet 50 mg PO QID #360 tabs 10/31/23 02/06/24 Rx lisinopril 20 1 tablet PO DAILY #90 tabs 10/31/23 02/06/24 Rx mg-hydrochlorothiazide 12.5 mg tablet pregabalin 75 mg capsule 75 mg PO BID #180 caps 11/06/23 02/06/24 Rx cholecalciferol (vitamin D3) 50 50 mcg PO DAILY 01/04/24 02/06/24 History mcg (2,000 unit) capsule biotin 10,000 mcg capsule 10,000 mcg PO DAILY 01/17/24 02/06/24 History furosemide 40 mg tablet 40 mg PO BID 01/17/24 02/06/24 History Allergies Allergy/AdvReac Type Severity Reaction Status Date / Time gabapentin AdvReac Mild Headache Verified 02/06/24 09:39 Exam Const: General: comfortable and no acute distress HENMT: Face/Nose/Sinus: Normal nares present Eyes: Genera
[2024-02-06] MEDS: LACTATED RINGERS 1,000 ML 150 ML IV CONT (09:53)
[2024-02-06 09:54] VITALS: BMI 36.6
[2024-02-06 09:55] VITALS: BP 145/80; PULSE 54; RESP 20; TEMP 36.3; O2SAT 100
[2024-02-06 10:13] VITALS: BP 88/38; PULSE 44; RESP 10; O2SAT 95
[2024-02-06 10:23] VITALS: BP 87/46; PULSE 51; RESP 24; O2SAT 97
[2024-02-06 10:33] VITALS: BP 101/53; PULSE 42; RESP 15; O2SAT 100
== END 2024-02-06 10:38 | disposition home or self-care (01) ==
PROVIDERS: PCP Family Medicine; Visit Provider Internal Medicine Gastroenterology
PROC: 0DJD8ZZ Inspection of Lower Intestinal Tract, Via Natural or Artificial Opening Endoscopic (ICD-10-PCS; CPT 45378; principal; 2024-02-06 11:00)
DX: Z12.11 Encounter for screening for malignant neoplasm of colon (principal); I12.9 Hypertensive chronic kidney disease with stage 1 through stage 4 chronic kidney disease, or unspecified chronic kidney disease; N18.30 Chronic kidney disease, stage 3 unspecified; I50.30 Unspecified diastolic (congestive) heart failure; E78.5 Hyperlipidemia, unspecified; M47.892 Other spondylosis, cervical region; G47.00 Insomnia, unspecified; I73.9 Peripheral vascular disease, unspecified; E66.9 Obesity, unspecified; Z68.36 Body mass index [BMI] 36.0-36.9, adult; Z79.82 Long term (current) use of aspirin; Z98.890 Other specified postprocedural states; Z98.1 Arthrodesis status; Z86.79 Personal history of other diseases of the circulatory system; Z86.718 Personal history of other venous thrombosis and embolism; Z80.1 Family history of malignant neoplasm of trachea, bronchus and lung; Z80.3 Family history of malignant neoplasm of breast; Z82.49 Family history of ischemic heart disease and other diseases of the circulatory system
CPT/HCPCS: G0105; J2704; J7120